=== PATIENT | male | born 1990 | race Hispanic/Latino ===

== ENCOUNTER 2017-10-28 20:01 | Emergency (ER) | payer OTHER ==
--- NOTE | 2017-10-28 21:31 | RAD REPORT ---
EXAM DESCRIPTION: RAD - Knee Right 3 View - 10/28/2017 9:24 pm CLINICAL HISTORY: Knee pain COMPARISON: None. FINDINGS: No fracture, dislocation or periosteal reaction.Small suprapatellar joint effusion. No manuel nt space narrowing. No soft tissue abnormality. Clinical concerns for internal derangement or occult bony injury could be further assessed with MR im aging.
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
== END 2017-10-28 22:33 | disposition home or self-care (01) ==
LOC: ER 20:01
DX: M25.561 Pain in right knee (principal); F17.210 Nicotine dependence, cigarettes, uncomplicated
CPT/HCPCS: 99283

== ENCOUNTER 2017-11-20 17:46 | Emergency (ER) | payer OTHER ==
--- NOTE | 2017-11-20 18:41 | ER ---
Nurse's Notes [facility] Name: Yung Menendez Age: 27 yrs Sex: Male : 1990 Arrival Date: 11/20/2017 Time: 17:50 Bed 11 Private MD: None, None Diagnosis: Paronychia Presentation: 11/20 17:50 Presenting complaint: Patient states: my R middle finger is swollen (in grown nail) for hj about 2 weeks already; negative for discharges;. Transition of care: patient was not received from another setting of care. Onset of symptoms was November 20, 2017. Risk Assessment: Do you want to hurt yourself or someone else? Patient reports no desire to harm self or others. Initial Sepsis Screen: Does the patient meet any 2 criteria? No. Patient's initial sepsis screen is negative. Does the patient have a suspected source of infection? No. Patient's initial sepsis screen is negative. Care prior to arrival: None. 17:50 Method Of Arrival: Ambulatory 17:50 Acuity: IRAM 4 hj Triage Assessment: 17:52 General: Appears in no apparent distress. uncomfortable, Behavior is calm, cooperative, hj appropriate for age. Pain: Complains of pain in dorsal aspect of distal phalanx of right middle finger. Historical: - Allergies: 17:52 NKDA; hj - Home Meds: 17:52 None [Active]; hj - PMHx: 17:52 None; hj - PSHx: 17:52 None; hj - Immunization history:: Adult Immunizations up to date. - Social history:: Smoking status: Patient uses tobacco products, Patient uses alcohol. - Ebola Screening: : Patient negative for fever greater than or equal to 101.5 degrees Fahrenheit, and additional compatible Ebola Virus Disease symptoms Patient denies exposure to infectious person Patient denies travel to an Ebola-affected area in the 21 days before illness onset. Screenin:53 Abuse screen: Denies threats or abuse. Denies injuries from another. Nutritional hj screening: No deficits noted. Tuberculosis screening: No symptoms or risk factors identified. Fall Risk None identified. Vital Signs: 17:53 BP 122 / 70; Pulse 85; Resp 18; Temp 98.1(O); Pulse Ox 97% on R/A; Weight 78.02 kg; hj Height 5 ft. 8 in. (172.72 cm); Pain 4/10; 17:53 Body Mass Index 26.15 (78.02 kg, 172.72 cm) ED Course: 17:50 Patient arrived in ED. mr 17:51 None, None is Private Physician. mr 17:52 Triage completed. hj 17:53 Arm band placed on right wrist. hj 17:53 Patient has correct armband on for positive identification. Bed in low position. Call hj light in reach. Adult w/ patient. 18:02 Jeison Petit PA is PHCP. jr 18:02 Wing Rossi MD is Attending Physician. jr8 18:50 Michelle Osei, RN is Primary Nurse. iw 18:51 Assist provider with I \T\ D: of an abscess on. iw 18:51 Patient did not have IV access during this emergency room visit. iw Administered Medications: No medications were administered Outcome: 18:40 Discharge ordered by . jr8 18:51 Discharged to home ambulatory, with family. iw 18:51 Condition: good 18:51 Discharge instructions given to patient, family, Instructed on discharge instructions, follow up and referral plans. medication usage, Demonstrated understanding of instructions, follow-up care, medications, Prescriptions given X 1. 18:51 Patient left the ED. iw Signatures: Suzanne Fisher mr Michelle Osei, RN RN Jeison Petit PA PA [facility] Kam Trujillo RN RN Corrections: (The following items were deleted from the chart) 17:54 17:50 Presenting complaint: Patient states: my R middle finger is swollen (in grown hj type) for about 2 weeks already; negative for discharges; hj 17:55 17:53 Pulse 85bpm; Resp 18bpm; Pulse Ox 97% RA; Temp 98.1F Oral; 78.02 kg; Height 5 ft. hj 8 in.; BMI: 26.1; Pain 4/10; hj
--- NOTE | 2017-11-20 18:41 | EDPHYS ---
Physician Documentation [facility] Name: Yung Menendez Age: 27 yrs Sex: Male : 1990 Arrival Date: 11/20/2017 Time: 17:50 Bed 11 Private MD: None, None ED Physician Wing Rossi HPI: 11/20 18:35 This 27 yrs old Male presents to ER via Ambulatory with complaints of Infected jr8 finger. 18:35 The complaints affect the dorsal aspect of distal phalanx of right middle finger. jr8 Onset: The symptoms/episode began/occurred gradually, 2 day(s) ago. Modifying factors: The symptoms are alleviated by nothing, the symptoms are aggravated by movement. Associated signs and symptoms: The patient has no apparent associated signs or symptoms. Severity of symptoms: At their worst the symptoms were mild, in the emergency department the symptoms are unchanged. The patient has not experienced similar symptoms in the past. The patient has not recently seen a physician. Patient stated that he was picking cuticle the other day. Now has swelling to finger . Historical: - Allergies: 17:52 NKDA; hj - Home Meds: 17:52 None [Active]; hj - PMHx: 17:52 None; hj - PSHx: 17:52 None; hj - Immunization history:: Adult Immunizations up to date. - Social history:: Smoking status: Patient uses tobacco products, Patient uses alcohol. - Ebola Screening: : Patient negative for fever greater than or equal to 101.5 degrees Fahrenheit, and additional compatible Ebola Virus Disease symptoms Patient denies exposure to infectious person Patient denies travel to an Ebola-affected area in the 21 days before illness onset. ROS: 18:35 Eyes: Negative for injury, pain, redness, and discharge, ENT: Negative for injury, jr8 pain, and discharge, Neck: Negative for injury, pain, and swelling, Cardiovascular: Negative for chest pain, palpitations, and edema, Respiratory: Negative for shortness of breath, cough, wheezing, and pleuritic chest pain, Abdomen/GI: Negative for abdominal pain, nausea, vomiting, diarrhea, and constipation, Back: Negative for injury and pain, Skin: Negative for injury, rash, and discoloration, Neuro: Negative for headache, weakness, numbness, tingling, and seizure. 18:35 MS/extremity: Positive for erythema, pain, swelling, tenderness, of the dorsal aspect of distal phalanx of right middle finger. Exam: 18:35 Eyes: Pupils equal round and reactive to light, extra-ocular motions intact. Lids and jr8 lashes normal. Conjunctiva and sclera are non-icteric and not injected. Cornea within normal limits. Periorbital areas with no swelling, redness, or edema. ENT: Nares patent. No nasal discharge, no septal abnormalities noted. Tympanic membranes are normal and external auditory canals are clear. Oropharynx with no redness, swelling, or masses, exudates, or evidence of obstruction, uvula midline. Mucous membranes moist. Neck: Trachea midline, no thyromegaly or masses palpated, and no cervical lymphadenopathy. Supple, full range of motion without nuchal rigidity, or vertebral point tenderness. No Meningismus. Cardiovascular: Regular rate and rhythm with a normal S1 and S2. No gallops, murmurs, or rubs. Normal PMI, no JVD. No pulse deficits. Respiratory: Lungs have equal breath sounds bilaterally, clear to auscultation and percussion. No rales, rhonchi or wheezes noted. No increased work of breathing, no retractions or nasal flaring. Abdomen/GI: Soft, non-tender, with normal bowel sounds. No distension or tympany. No guarding or rebound. No evidence of tenderness throughout. Back: No spinal tenderness. No costovertebral tenderness. Full range of motion. Skin: Warm, dry with normal turgor. Normal color with no rashes, no lesions, and no evidence of cellulitis. Neuro: Awake and alert, GCS 15, oriented to person, place, time, and situation. Cranial nerves II-XII grossly intact. Motor strength 5/5 in all extremities. Sensory grossly intact. Cerebellar exam normal. Normal gait. 18:35 Musculoskeletal/extremity: Extremities: grossly normal except: noted in the dorsal aspect of distal phalanx of right middle finger: erythema, pain, swelling, tenderness, ROM: intact in all extremities, Circulation is intact in all extremities. Sensation intact. Vital Signs: 17:53 BP 122 / 70; Pulse 85; Resp 18; Temp 98.1(O); Pulse Ox 97% on R/A; Weight 78.02 kg; hj Height 5 ft. 8 in. (172.72 cm); Pain 4/10; 17:53 Body Mass Index 26.15 (78.02 kg, 172.72 cm) Procedures: 18:35 I \T\ D: Incision and drainage was performed for an abscess of the dorsal aspect of jr8 distal phalanx of right middle finger Prepped with Betadine, Anesthetized with 3 ml's 1% Lidocaine. Incised with #11 blade. Drained small amount bloody fluid. Dressing: sterile 4x4 gauze, the patient tolerated the procedure well. MDM: 18:02 Patient medically screened. jr8 18:35 Data reviewed: vital signs, nurses notes, and as a result, I will discharge patient. jr8 Data interpreted: Pulse oximetry: on room air is 97 %. Interpretation: normal. Counseling: I had a detailed discussion with the patient and/or guardian regarding: the historical points, exam findings, and any diagnostic results supporting the discharge/admit diagnosis, the need for outpatient follow up, a family practitioner, to return to the emergency department if symptoms worsen or persist or if there are any questions or concerns that arise at home. Administered Medications: No medications were administered Disposition: 21:14 Co-signature as Attending Physician, Wing Rossi MD. Disposition: 11/20/17 18:40 Discharged to Home. Impression: Paronychia . - Condition is Stable. - Discharge Instructions: Paronychia. - Prescriptions for Bactrim DS 800- 160 mg Oral Tablet - take 1 tablet by ORAL route every 12 hours for 10 days; 20 tablet. - Medication Reconciliation Form, Thank You Letter, Antibiotic Education, Prescription Opioid Use form. - Follow up: Private Physician; When: 2 - 3 days; Reason: Recheck today's complaints, Continuance of care, Re-evaluation by your physician. - Problem is new. - Symptoms have improved. Signatures: Michelle Osei RN RN iw Roszak, Josh, PA PA jr8 Kam Trujillo RN RN hj Starr, Gregory, MD MD Corrections: (The following items were deleted from the chart) 18:51 18:40 11/20/2017 18:40 Discharged to Home. Impression: Paronychia . Condition is iw Stable. Forms are Medication Reconciliation Form, Thank You Letter, Antibiotic Education, Prescription Opioid Use. Follow up: Private Physician; When: 2 - 3 days; Reason: Recheck today's complaints, Continuance of care, Re-evaluation by your physician. Problem is new. Symptoms have improved. jr8
== END 2017-11-20 18:51 | disposition home or self-care (01) ==
LOC: ER 17:46
PROC: 0J9J0ZZ Drainage of Right Hand Subcutaneous Tissue and Fascia, Open Approach (ICD-10-PCS; principal; 2017-11-20)
DX: L03.011 Cellulitis of right finger (principal); Z72.0 Tobacco use
CPT/HCPCS: 99283

== ENCOUNTER 2018-10-20 13:17 | Emergency (ER) | payer OTHER ==
--- NOTE | 2018-10-20 13:40 | RAD REPORT ---
EXAM DESCRIPTION: RAD - Knee Left 2 View - 10/20/2018 1:33 pm CLINICAL HISTORY: PAIN COMPARISON: <Comparisons> FINDINGS: Lateral dislocation of the patella is seen. A fracture is not apparent.
[2018-10-20] MEDS ORDERED: PROPOFOL 0 MG/0 ML VIAL IV ONE (14:37)
[2018-10-20] MEDS ORDERED: NA CHLORIDE 0.9% 1,000 ML ONE (14:37)
[2018-10-20] MEDS ORDERED: PROPOFOL 200 MG/20 ML VIAL IV ONE (14:39)
--- NOTE | 2018-10-20 15:47 | RAD REPORT ---
EXAM DESCRIPTION: RAD - Knee Left 3 View - 10/20/2018 3:42 pm CLINICAL HISTORY: DEFORMITY Pain, swelling COMPARISON: Knee Left 2 View dated 10/20/2018 FINDINGS: The previously noted patellar dislocation has been reduced. No fracture evident.
--- NOTE | 2018-10-20 15:58 | ER ---
Nurse's Notes [facility] Name: Yung Menendez Age: 28 yrs Sex: Male : 1990 Arrival Date: 10/20/2018 Time: 13:19 Bed 25 Private MD: Diagnosis: Pain in right knee;Lateral dislocation of right patella Presentation: 10/20 13:20 Presenting complaint: EMS states: pt getting to a chair and twisted his knee (R). ca1 Happened before on the L knee and popped it back himself. VS stable. Applied loose splint on affected extremity. Transition of care: patient was not received from another setting of care. Onset of symptoms was October 20, 2018. Risk Assessment: Do you want to hurt yourself or someone else? Patient reports no desire to harm self or others. Initial Sepsis Screen: Does the patient meet any 2 criteria? No. Patient's initial sepsis screen is negative. Does the patient have a suspected source of infection? No. Patient's initial sepsis screen is negative. Care prior to arrival: Splint applied. 13:20 Method Of Arrival: EMS: [facility] ca1 13:20 Acuity: IRAM 3 ca1 Triage Assessment: 13:36 General: Appears in no apparent distress. uncomfortable, Behavior is cooperative, ca1 appropriate for age. Pain: Complains of pain in right leg Pain does not radiate. Pain currently is 7 out of 10 on a pain scale. at worst was 10 out of 10 on a pain scale. Aggravated by repositioning. Historical: - Allergies: 13:36 NKDA; ca1 - Home Meds: 13:36 None [Active]; ca1 - PMHx: 13:36 None; ca1 - PSHx: 13:36 None; ca1 - Immunization history:: Last tetanus immunization: not immunized Flu vaccine is not up to date. - Social history:: Smoking status: Patient uses tobacco products, smokes one pack cigarettes per day. - Ebola Screening: : No symptoms or risks identified at this time. Screenin:38 Abuse screen: Denies threats or abuse. Denies injuries from another. Nutritional ca1 screening: No deficits noted. Tuberculosis screening: No symptoms or risk factors identified. Fall Risk None identified. Assessment: 13:38 General: Appears in no apparent distress. uncomfortable, Behavior is calm, cooperative, ca1 appropriate for age. Pain: Complains of pain in right knee and right leg Pain does not radiate. Pain currently is 7 out of 10 on a pain scale. Pain began 1 hour ago. Neuro: Level of Consciousness is awake, alert, obeys commands, Oriented to person, place, time, situation. Cardiovascular: Heart tones S1 S2 present Capillary refill < 3 seconds Patient's skin is warm and dry. Respiratory: Airway is patent Respiratory effort is even, unlabored, Respiratory pattern is regular, symmetrical, Breath sounds are clear bilaterally. GI: No deficits noted. No signs and/or symptoms were reported involving the gastrointestinal system. : No deficits noted. No signs and/or symptoms were reported regarding the genitourinary system. EENT: No deficits noted. No signs and/or symptoms were reported regarding the EENT system. Derm: Skin is intact, is healthy with good turgor, Skin is pink, warm \T\ dry. Musculoskeletal: Circulation, motion, and sensation intact. Capillary refill < 3 seconds, Range of motion: limited in right knee Bony deformity noted of right knee. Injury Description: Deformity sustained to right knee is dislocated, was sustained 30-60 minutes ago. 13:52 Reassessment: Dr. Reeder and FORKLIFT SUPERVISOR at bedside. ca1 14:53 Reassessment: Patient appears in no apparent distress at this time. Patient is alert, ca1 oriented x 3, equal unlabored respirations, skin warm/dry/pink. Informed consent for conscious sedation signed. Meds and E-cart at bedside. Suction and O2 prepped. 15:00 Reassessment: Reassessment: Reduction of R knee done by Dr. Reeder at bedside under ca1 Conscious Sedation. PT tolerated well. 15:20 Reassessment: Pt fully awake. Head of bed elevated. [place] Score 10/10. ca1 15:36 Reassessment: PT requested soda. Drank a full cup. Pt tolerated. No reports of N/V or ca1 choking. 16:06 Reassessment: Patient appears in no apparent distress at this time. Patient is alert, ca1 oriented x 3, equal unlabored respirations, skin warm/dry/pink. 16:11 Reassessment: Patient appears in no apparent distress at this time. Pt ambulated to [facility] restroom with quick steady gait. No complaints of pain. Pt reported he was able to urinate with problems. Vital Signs: 13:36 BP 118 / 67; Pulse 82; Resp 16; Temp 98.2(O); Pulse Ox 98% on R/A; Weight 83.01 kg; ca1 Height 5 ft. 8 in. (172.72 cm); Pain 7/10; 14:26 BP 115 / 67; Pulse 79; Resp 16; Temp 98.1(O); Pulse Ox 99% ; lt1 15:02 BP 112 / 60; Pulse 93; Resp 16; Temp 98(T); Pulse Ox 94% on R/A; ca1 16:07 BP 126 / 89; Pulse 75; Resp 19; Temp 98.1(O); Pulse Ox 97% on R/A; ca1 13:36 Body Mass Index 27.82 (83.01 kg, 172.72 cm) ca1 15:02 VS intra op. See Consious Sedation Flow Sheet ca1 ED Course: 13:19 Patient arrived in ED. ss 13:20 Pat Maharaj, TUCKER is Primary Nurse. ca1 13:21 Patricia Lee FNP is PHCP. nh 13:21 Chris Reeder MD is Attending Physician. nh 13:23 Triage completed. ca1 13:33 Knee Left 2 View In Process Unspecified. EDMS 13:36 Arm band placed on right wrist. ca1 13:38 Patient has correct armband on for positive identification. Placed in gown. Bed in low ca1 position. Call light in reach. Side rails up X 1. Pulse ox on. NIBP on. Warm blanket given. 13:58 Inserted saline lock: 20 gauge in left antecubital area, using aseptic technique. Blood ca1 collected. 15:44 Knee Left 3 View XRAY In Process Unspecified. EDMS 16:25 No provider procedures requiring assistance completed. IV discontinued, intact, ca1 bleeding controlled, No redness/swelling at site. Pressure dressing applied. Administered Medications: 14:59 Drug: Propofol 100 mg {Note: Administered by DESIREE Lee .} Route: IVP; Site: left ca1 antecubital; 15:54 Follow up: Response: No adverse reaction ca1 Outcome: 15:57 Discharge ordered by . nh 16:28 Discharged to home ambulatory, with significant other. ca1 16:28 Condition: stable 16:28 Discharge instructions given to patient, Instructed on discharge instructions, follow up and referral plans. medication usage, Demonstrated understanding of instructions, follow-up care, medications, Prescriptions given X 1. 16:35 Patient left the ED. ca1 Signatures: Dispatcher [employer] Patricia Mccarty, Caryn Zepeda RN RN ss Pat Maharaj RN RN ca1 Arabella Ch lt1 Corrections: (The following items were deleted from the chart) 16:04 16:03 Reassessment: ca1 ca1
--- NOTE | 2018-10-20 15:58 | EDPHYS ---
Physician Documentation [facility] Name: Yung Menendez Age: 28 yrs Sex: Male : 1990 Arrival Date: 10/20/2018 Time: 13:19 Bed 25 Private MD: ED Physician Chris Reeder HPI: 10/20 15:52 This 28 yrs old Male presents to ER via EMS with complaints of Knee Pain. nh 15:52 Onset: The symptoms/episode began/occurred acutely, just prior to arrival. The patient nh has not experienced similar symptoms in the past, but family has similar symptoms. The patient has not recently seen a physician. 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 Patient states that this has happened before. Historical: - Allergies: 13:36 NKDA; ca1 - Home Meds: 13:36 None [Active]; ca1 - PMHx: 13:36 None; ca1 - PSHx: 13:36 None; ca1 - Immunization history:: Last tetanus immunization: not immunized Flu vaccine is not up to date. - Social history:: Smoking status: Patient uses tobacco products, smokes one pack cigarettes per day. - Ebola Screening: : No symptoms or risks identified at this time. ROS: 15:52 Constitutional: Negative for fever, chills, and weight loss, Eyes: Negative for injury, nh pain, redness, and discharge, ENT: Negative for injury, pain, and discharge, Neck: Negative for injury, pain, and swelling, Cardiovascular: Negative for chest pain, palpitations, and edema, Respiratory: Negative for shortness of breath, cough, wheezing, and pleuritic chest pain, Abdomen/GI: Negative for abdominal pain, nausea, vomiting, diarrhea, and constipation, Back: Negative for injury and pain, : Negative for injury, bleeding, discharge, and swelling, Skin: Negative for injury, rash, and discoloration, Neuro: Negative for headache, weakness, numbness, tingling, and seizure, Psych: Negative for depression, anxiety, suicide ideation, homicidal ideation, and hallucinations, Allergy/Immunology: Negative for hives, rash, and allergies, Endocrine: Negative for neck swelling, polydipsia, polyuria, polyphagia, and marked weight changes, Hematologic/Lymphatic: Negative for swollen nodes, abnormal bleeding, and unusual bruising. 15:52 MS/extremity: Positive for injury or acute deformity. Exam: 15:52 Constitutional: This is a well developed, well nourished patient who is awake, alert, nh and in no acute distress. Head/Face: Normocephalic, atraumatic. Eyes: Pupils equal round and reactive to light, extra-ocular motions intact. Lids and lashes normal. Conjunctiva and sclera are non-icteric and not injected. Cornea within normal limits. Periorbital areas with no swelling, redness, or edema. ENT: Nares patent. No nasal discharge, no septal abnormalities noted. Tympanic membranes are normal and external auditory canals are clear. Oropharynx with no redness, swelling, or masses, exudates, or evidence of obstruction, uvula midline. Mucous membranes moist. Neck: Trachea midline, no thyromegaly or masses palpated, and no cervical lymphadenopathy. Supple, full range of motion without nuchal rigidity, or vertebral point tenderness. No Meningismus. Chest/axilla: Normal chest wall appearance and motion. Nontender with no deformity. No lesions are appreciated. Cardiovascular: Regular rate and rhythm with a normal S1 and S2. No gallops, murmurs, or rubs. Normal PMI, no JVD. No pulse deficits. Respiratory: Lungs have equal breath sounds bilaterally, clear to auscultation and percussion. No rales, rhonchi or wheezes noted. No increased work of breathing, no retractions or nasal flaring. Abdomen/GI: Soft, non-tender, with normal bowel sounds. No distension or tympany. No guarding or rebound. No evidence of tenderness throughout. Back: No spinal tenderness. No costovertebral tenderness. Full range of motion. Skin: Warm, dry with normal turgor. Normal color with no rashes, no lesions, and no evidence of cellulitis. Neuro: Awake and alert, GCS 15, oriented to person, place, time, and situation. Cranial nerves II-XII grossly intact. Motor strength 5/5 in all extremities. Sensory grossly intact. Cerebellar exam normal. Normal gait. 15:52 Musculoskeletal/extremity: Extremities: noted in the right knee: deformity, ROM: intact in all extremities, Circulation is intact in all extremities. Pulses: are normal with no appreciated deficits, Sensation intact. Vital Signs: 13:36 BP 118 / 67; Pulse 82; Resp 16; Temp 98.2(O); Pulse Ox 98% on R/A; Weight 83.01 kg; ca1 Height 5 ft. 8 in. (172.72 cm); Pain 7/10; 14:26 BP 115 / 67; Pulse 79; Resp 16; Temp 98.1(O); Pulse Ox 99% ; lt1 15:02 BP 112 / 60; Pulse 93; Resp 16; Temp 98(T); Pulse Ox 94% on R/A; ca1 16:07 BP 126 / 89; Pulse 75; Resp 19; Temp 98.1(O); Pulse Ox 97% on R/A; ca1 13:36 Body Mass Index 27.82 (83.01 kg, 172.72 cm) ca1 15:02 VS intra op. See Consious Sedation Flow Sheet ca1 Procedures: 15:52 Reduction: of the right knee, using manipulation, Immobilized with Patient tolerated nh well. Post reduction film - reveals normal alignment. MDM: 13:21 Patient medically screened. pa 15:52 Data reviewed: vital signs, nurses notes, radiologic studies, I have discussed the pa patient's presentation/case with the attending Emergency Department Physician; and as a result, I will discharge patient. Counseling: I had a detailed discussion with the patient and/or guardian regarding: the historical points, exam findings, and any diagnostic results supporting the discharge/admit diagnosis, radiology results, the need for outpatient follow up, to return to the emergency department if symptoms worsen or persist or if there are any questions or concerns that arise at home. 10/20 13:33 Order name: Knee Left 2 View; Complete Time: 13:42 EDME 10/20 13:55 Order name: IV Saline Lock; Complete Time: 13:58 pa 10/20 15:04 Order name: Knee Left 3 View XRAY pa 10/20 15:51 Order name: Knee Immobilizer; Complete Time: 16:02 pa Administered Medications: 14:59 Drug: Propofol 100 mg {Note: Administered by DESIERE Lee .} Route: IVP; Site: left ca1 antecubital; 15:54 Follow up: Response: No adverse reaction ca1 Disposition: 10/20/18 15:57 Discharged to Home. Impression: Pain in right knee, Lateral dislocation of right patella. - Condition is Stable. - Discharge Instructions: Knee Pain. - Prescriptions for Tylenol- Codeine #3 300-30 mg Oral Tablet - take 2 tablet by ORAL route every 6 hours As needed; 30 tablet. - Medication Reconciliation Form, Thank You Letter, Antibiotic Education, Prescription Opioid Use, Work release form form. - Follow up: Private Physician; When: 2 - 3 days; Reason: Recheck today's complaints. - Problem is new. - Symptoms are unchanged. Addendum: 10/22/2018 06:37 Co-signature as Attending Physician, Chris Reeder MD I agree with the assessment and k dr plan of care. Signatures: Dispatcher [employer] EDME Chris Reeder MD MD [facility] Jesus, Patricia, LAY OUT MACHINE OPERATOR LAY OUT MACHINE OPERATOR nh Pat Maharaj RN RN ca1 Corrections: (The following items were deleted from the chart) 10/20 13:33 13:28 Knee Left 3 View+RAD.RAD.BRZ ordered. [facility] EDME 16:35 15:57 10/20/2018 15:57 Discharged to Home. Impression: Pain in right knee; Lateral ca1 dislocation of right patella. Condition is Stable. Forms are Medication Reconciliation Form, Thank You Letter, Antibiotic Education, Prescription Opioid Use. Follow up: Private Physician; When: 2 - 3 days; Reason: Recheck today's complaints. Problem is new. Symptoms are unchanged. pa
== END 2018-10-20 16:35 | disposition home or self-care (01) ==
LOC: ER 13:17
PROC: 2W3RX1Z Immobilization of Left Lower Leg using Splint (ICD-10-PCS; principal; 2018-10-20)
DX: S83.014A Lateral dislocation of right patella, initial encounter (principal); X50.1XXA Overexertion from prolonged static or awkward postures, initial encounter
CPT/HCPCS: 96374; 99285; J2704; J7030

== ENCOUNTER 2020-07-06 18:00 | Emergency (ER) | payer OTHER ==
--- NOTE | 2020-07-06 18:54 | ER ---
Nurse's Notes [facility] Name: Yung Menendez Age: 30 yrs Sex: Male : 1990 Arrival Date: 07/06/2020 Time: 18:07 Bed 25 Private MD: Diagnosis: Lateral dislocation of right patella Presentation: 07/06 18:07 Method Of Arrival: EMS: [facility] aa5 18:07 Chief complaint: Patient states: slipped and fell on ice. Deformity noted to right aa5 knee. Ketamine 40mg IVP given by EMS SOUND ASSISTANT, 20 G to L AC noted. R Patella reduced by JORDY Shaw at this time, pt tolerated well. 18:07 Coronavirus screen: Client denies travel out of the [place] in the last 14 days. At this aa5 time, the client does not indicate any symptoms associated with coronavirus-19. Ebola Screen: Patient negative for fever greater than or equal to 101.5 degrees Fahrenheit, and additional compatible Ebola Virus Disease symptoms. Initial Sepsis Screen: Does the patient meet any 2 criteria? No. Patient's initial sepsis screen is negative. Does the patient have a suspected source of infection? No. Patient's initial sepsis screen is negative. Risk Assessment: Do you want to hurt yourself or someone else? Patient reports no desire to harm self or others. Onset of symptoms was July 06, 2020. 18:07 Acuity: IRAM 3 aa5 Historical: - Allergies: 18:07 NKDA; aa5 - PMHx: 18:07 None; aa5 - PSHx: 18:07 None; aa5 - Immunization history:: Adult Immunizations unknown. - Social history:: Smoking status: Reported history of juuling and/or vaping. Assessment: 18:07 General: Appears uncomfortable, Behavior is calm, cooperative. Pain: Complains of pain aa5 in right knee. Neuro: Level of Consciousness is awake, alert, obeys commands, Oriented to person, place, time, situation. Cardiovascular: Patient's skin is warm and dry. Respiratory: Airway is patent Respiratory effort is even, unlabored, Respiratory pattern is regular, symmetrical. GI: No signs and/or symptoms were reported involving the gastrointestinal system. : No signs and/or symptoms were reported regarding the genitourinary system. EENT: No signs and/or symptoms were reported regarding the EENT system. Derm: Skin is pink, warm \T\ dry. Musculoskeletal: Deformity noted to left knee. 18:15 Reassessment: Patient is alert, oriented x 3, equal unlabored respirations, skin aa5 warm/dry/pink. States feeling better post reduction of right patella by PA. General: Appears comfortable. 18:34 Reassessment: Awaiting x-ray. aa5 18:34 Reassessment: Patient is alert, oriented x 3, equal unlabored respirations, skin aa5 warm/dry/pink. Vital Signs: 18:07 BP 123 / 92; Pulse 66; Resp 18 S; Temp 98.0(TE); Pulse Ox 97% on R/A; Weight 81.65 kg aa5 (R); Height 5 ft. 8 in. (172.72 cm) (R); Pain 0/10; 18:07 Body Mass Index 27.37 (81.65 kg, 172.72 cm) aa5 ED Course: 18:07 Patient arrived in ED. aa5 18:07 Ronit Ann, TUCKER is Primary Nurse. aa5 18:07 Arm band placed on Patient placed in an exam room, on a stretcher. aa5 18:11 Jeison Petit PA is PHCP. jr8 18:11 Gibson Jackson MD is Attending Physician. jr8 18:37 Triage completed. aa5 18:54 Ivan Petit MD is Referral Physician. jr8 19:01 Knee Right 3 View XRAY In Process Unspecified. EDDE 19:30 Crutch training done. Knee immobilizer applied on right knee. 19:41 No provider procedures requiring assistance completed. IV discontinued, intact, ss bleeding controlled, No redness/swelling at site. Pressure dressing applied. Administered Medications: No medications were administered Outcome: 18:54 Discharge ordered by . 8 19:41 Discharged to home with crutches, with family. ss 19:41 Condition: good 19:41 Discharge instructions given to patient, Instructed on discharge instructions, follow up and referral plans. medication usage, Demonstrated understanding of instructions, follow-up care, medications, Prescriptions given X 1. 19:42 Patient left the ED. ss Signatures: Dispatcher [employer] EDMS Delvis Beaver RN RN Ronit Ann RN RN aa5 Caryn Pacheco, RN RN ss Jeison Petit PA PA jr8
--- NOTE | 2020-07-06 18:54 | EDPHYS ---
Physician Documentation [facility] Name: Yung Menendez Age: 30 yrs Sex: Male : 1990 Arrival Date: 07/06/2020 Time: 18:07 Bed 25 Private MD: ED Physician Gibson Jackson HPI: 07/06 18:22 This 30 yrs old Male presents to ER via Unassigned with complaints of Knee jr8 Pain. 18:22 The patient presents with decreased range of motion, pain, that is acute. The jr8 complaints affect the right knee. Onset: The symptoms/episode began/occurred acutely, today. Modifying factors: The symptoms are alleviated by nothing. the symptoms are aggravated by movement, weight bearing, bending knee. Associated signs and symptoms: The patient has no apparent associated signs or symptoms. Severity of symptoms: At their worst the symptoms were moderate, in the emergency department the symptoms are unchanged. The patient has experienced similar episodes in the past, a few times. The patient has not recently seen a physician. patient stated that his knee cap dislocated which has happened in the past. Could not get it to go back in . Historical: - Allergies: 18:07 NKDA; aa5 - PMHx: 18:07 None; aa5 - PSHx: 18:07 None; aa5 - Immunization history:: Adult Immunizations unknown. - Social history:: Smoking status: Reported history of juuling and/or vaping. ROS: 18:22 Constitutional: Negative for fever, chills, and weight loss. jr8 18:22 MS/extremity: Positive for decreased range of motion, pain, tenderness, of the right knee. 18:22 All other systems are negative. Exam: 18:22 Constitutional: This is a well developed, well nourished patient who is awake, alert, jr8 and in no acute distress. Cardiovascular: Regular rate and rhythm with a normal S1 and S2. No gallops, murmurs, or rubs. Normal PMI, no JVD. No pulse deficits. Respiratory: Lungs have equal breath sounds bilaterally, clear to auscultation and percussion. No rales, rhonchi or wheezes noted. No increased work of breathing, no retractions or nasal flaring. Skin: Warm, dry with normal turgor. Normal color with no rashes, no lesions, and no evidence of cellulitis. Neuro: Awake and alert, GCS 15, oriented to person, place, time, and situation. Cranial nerves II-XII grossly intact. Motor strength 5/5 in all extremities expect right leg secondary to dislocation of patella. Sensory grossly intact. 18:22 Musculoskeletal/extremity: Extremities: grossly normal except: noted in the right knee: Patient has pain and obvious dislocation to right patella. No swelling or other signs of trauma noted , Circulation is intact in all extremities. Sensation intact. Vital Signs: 18:07 BP 123 / 92; Pulse 66; Resp 18 S; Temp 98.0(TE); Pulse Ox 97% on R/A; Weight 81.65 kg aa5 (R); Height 5 ft. 8 in. (172.72 cm) (R); Pain 0/10; 18:07 Body Mass Index 27.37 (81.65 kg, 172.72 cm) aa5 Procedures: 18:22 Splinting: Splint applied to right knee using knee immobilizer, applied by nurse. jr8 Examined by me, post splint application: neurovascular intact, 2+ distal pulses palpable, brisk capillary refill noted, Patient tolerated well. Crutch training provided to patient and/or family. Return demonstration given. MDM: 18:11 Patient medically screened. jr8 18:32 Data reviewed: vital signs, nurses notes, radiologic studies, plain films. Data jr8 interpreted: Pulse oximetry: on room air is 100 %. Interpretation: normal. Counseling: I had a detailed discussion with the patient and/or guardian regarding: the historical points, exam findings, and any diagnostic results supporting the discharge/admit diagnosis, radiology results, the need for outpatient follow up, a orthopedic surgeon, to return to the emergency department if symptoms worsen or persist or if there are any questions or concerns that arise at home. 07/06 18:08 Order name: Knee Right 3 View XRAY; Complete Time: 19:11 bd 07/06 18:28 Order name: Knee Immobilizer; Complete Time: 19:30 jr8 07/06 18:28 Order name: Crutches; Complete Time: 19:30 jr8 Administered Medications: No medications were administered Disposition: 07/06/20 18:54 Discharged to Home. Impression: Lateral dislocation of right patella. - Condition is Stable. - Discharge Instructions: Knee Dislocation. - Prescriptions for Ibuprofen 800 mg Oral Tablet - take 1 tablet by ORAL route every 8 hours As needed take with food; 30 tablet. - Medication Reconciliation Form, Thank You Letter, Antibiotic Education, Prescription Opioid Use form. - Follow up: Ivan Petit MD; When: 5 - 6 days; Reason: Recheck today's complaints, Continuance of care, Re-evaluation by your physician. - Problem is new. - Symptoms have improved. Addendum: 07/10/2020 19:27 Co-signature as Attending Physician, Gibson Jackson MD I agree with the assessment and t w4 plan of care. Signatures: Dispatcher [employer] EDMS Ronit Ann RN RN aa5 Caryn Pacheco RN RN ss Jeison Petit, JORDY PA jr8 Gibson Jackson MD MD tw4 Corrections: (The following items were deleted from the chart) 07/06 19:42 18:54 07/06/2020 18:54 Discharged to Home. Impression: Lateral dislocation of right ss patella. Condition is Stable. Forms are Medication Reconciliation Form, Thank You Letter, Antibiotic Education, Prescription Opioid Use. Follow up: Ivan Petit; When: 5 - 6 days; Reason: Recheck today's complaints, Continuance of care, Re-evaluation by your physician. Problem is new. Symptoms have improved. jr8
--- NOTE | 2020-07-06 19:09 | RAD REPORT ---
EXAM DESCRIPTION: RAD - Knee Right 3 View - 07/06/2020 7:02 pm CLINICAL HISTORY: post reduction Pain swelling COMPARISON: Knee Right 3 View dated 10/28/2017 FINDINGS: No fracture or dislocation is evident.
[2020-07-06 19:47] VITALS: BP 123/92; TEMP 98; O2SAT 97
== END 2020-07-06 19:42 | disposition home or self-care (01) ==
LOC: ER 18:00
DX: S83.014A Lateral dislocation of right patella, initial encounter (principal)
CPT/HCPCS: 99284